=== PATIENT | female | born 1960 | race Caucasian/White ===

== ENCOUNTER 2020-08-25 13:13 | Emergency (ER) | payer OTHER, MEDICARE, MEDICAID, SELFPAY ==
[2020-08-25 13:14] VITALS: BP 121/82; PULSE 89; RESP 16; TEMP 36.3; O2SAT 95; BMI 23.3
--- NOTE | 2020-08-25 13:31 | RAD_ITS ---
STUDY: X-RAY - LEFT ELBOW REASON FOR EXAM: Female, 60 years old. Injury/Pain TECHNIQUE: 3 view(s) of the elbow. COMPARISON: None. FINDINGS: Seen only on the lateral view is a nondisplaced proximal ulnar fracture with associated soft tissue swelling. No demonstrated fracture of the distal humerus or proximal radius. RAD/Elbow min 3 Views IMPRESSION: Nondisplaced proximal ulnar fracture with soft tissue swelling Electronically Signed: Alan Perez MD at 13:57 EDT , Service support ,
--- NOTE | 2020-08-25 13:42 | EX.ED.UPPERE ---
HPI History of Present Illness Chief Complaint: Upper Extremity Injury Narrative Narrative: The patient presents complaining of left elbow pain that occurred last night when she inadvertently fell striking her left elbow she has no other complaints no head neck chest or abdominal pain she has full use motion of the left hand [facility] Medical History (Updated 08/25/20 @ 14:[address] Marlo Ramon MD) Anxiety Closed olecranon fracture COPD (chronic obstructive pulmonary disease) Hypertension Home Medications lisinopril 5 mg PO DAILY 10/29/13 [History Last Taken Unknown] tizanidine [Zanaflex] 4 mg PO QHS 10/29/13 [History Last Taken 08/24/15] trazodone 150 mg PO QHS 10/29/13 [History Last Taken 08/24/15] venlafaxine 150 mg PO QHS 10/29/13 [History Last Taken 08/24/15] tiotropium bromide [Spiriva with HandiHaler] 1 puff INHALATION DAILY 08/25/15 [History Last Taken 08/25/15] albuterol sulfate [Ventolin HFA] 1 - 2 puff INHALATION Q4H PRN PRN #1 inhaler 08/27/15 [Rx Last Taken Unknown] prednisone 40 mg PO DAILY@0800 #10 tablet 12/23/16 [Rx Last Taken Unknown] hydrocodone-acetaminophen 1 tab PO Q4H PRN PRN 3 Days #10 tablet 08/25/20 [Rx Last Taken Unknown] Allergy/AdvReac Type Severity Reaction Status Date / Time aspirin Allergy Anaphylaxis Verified 08/25/20 13:16 Family History (Updated 08/25/20 @ 14:[address] Marlo Ramon MD) Other Closed olecranon fracture Social History Smoking Status: Current every day smoker ROS ROS ED ROS Narrative Only complaint is left elbow injury Constitutional Constitutional ED: Reports subjective, sweats and other; Denies chills, fever(s) or weight loss Eyes Eyes: Denies blurry vision or change in vision ENT ENT ED: Denies ear pain Cardiovascular Cardiovascular: Denies chest pain or palpitations Respiratory/Chest Respiratory/Chest: Denies dyspnea Gastrointestinal Gastrointestinal: Denies abdominal pain, nausea or vomiting Genitourinary Genitourinary ED: Denies dysuria or hematuria Musculoskeletal Musculoskeletal: Reports myalgias; Denies arthralgias Integumentary Reports rash; Denies abscess Neurologic Neurologic: Denies weakness Psychiatric Psychiatric: Denies anxiety or depression Endocrine Endocrinology: Denies polydipsia or polyuria Allergic/Immunologic Allergic/Immunologic ED: Denies urticaria EXAM Physical Exam Narrative Exam Narrative: The patient's general exam is unremarkable see below the left elbow there is contusion to the elbow she is able to flex and extend forearm wrist hand unremarkable hand function normal pulses normal neurovascular function normal shoulder unremarkable Const Vital Signs: 08/25/20 13:14 Temperature 97.3 F L Temperature Source Temporal Pulse Rate 89 Respiratory Rate 16 Blood Pressure 121/82 H Blood Pressure Mean 95 Pulse Ox 95 Oxygen Delivery Method Room Air Positive well developed General Appearance ED: well developed HEENT Reports normocephalic Negative for trauma Eyes EOMs intact bilaterally Neck supple Chest Wall inspection of chest normal Resp normal respiratory effort Cardio regular rate GI non-tender and non-distended Back/Spine Back/Spine Narrative: unremarkable Extremity normal to inspection Neuro oriented x3 and CN's II-XII intact bilaterally Sensorium / Orientation: alert Psych mental status grossly normal Skin no rashes or lesions noted MDM MDM MDM Narrative Medical decision making narrative: Given all the above pain management Multiview x-ray to my review shows what appears to be a nondisplaced olecranon fracture radiology agrees explained this to the patient she is placed in a long elbow splint she is placed off work Worker's Compensation work filled out given referral to orthopedics and the [facility] provider of her choice [employer] for pain and return for change in symptoms Home stable Final impression nondisplaced left olecranon fracture after falling at work Discharge Plan Triage Chief Complaint: Upper Extremity Injury ED Provider: Marlo Ramon Dx/Rx/DC Orders Clinical Impression: Closed olecranon fracture Instructions: ED Elbow Fracture Prescriptions: New hydrocodone-acetaminophen 5-325 mg tablet 1 tab PO Q4H PRN PRN (Reason: Pain) 3 Days Qty: 10 RF: 0 No Action tizanidine [Zanaflex] 4 MG tablet 4 mg PO QHS RF: 0 trazodone 100 MG tablet 150 mg PO QHS RF: 0 venlafaxine 37.5 MG tablet 150 mg PO QHS RF: 0 lisinopril 10 MG tablet 5 mg PO DAILY RF: 0 tiotropium bromide [Spiriva with HandiHaler] 1 PUFF inhaler 1 puff inhalation DAILY RF: 0 albuterol sulfate [Ventolin HFA] 1 INHALER inhaler 1 - 2 puff inhalation Q4H PRN PRN (Reason: Sob &/Or Wheezing) Qty: 1 RF: 0 prednisone 20 MG tablet 40 mg PO DAILY@0800 Qty: 10 RF: 0 Primary Care Provider: Oz Franklin Referrals: Schuyler Garcia DO [STAFF PHYSICIAN] - Oz Franklin MD [Primary Care Provider] -
[2020-08-25] MEDS: Acetaminophen 500 MG Tablet 1000 MG PO (14:25)
== END 2020-08-25 15:38 | disposition home or self-care (01) ==
LOC: ED 14:33
PROVIDERS: Emergency Provider Emergency Medicine; PCP Family Medicine
DX: S52.025A Nondisplaced fracture of olecranon process without intraarticular extension of left ulna, initial encounter for closed fracture (principal); W01.10XA Fall on same level from slipping, tripping and stumbling with subsequent striking against unspecified object, initial encounter; Y93.9 Activity, unspecified; Y92.9 Unspecified place or not applicable; Y99.0 Civilian activity done for income or pay; J44.9 Chronic obstructive pulmonary disease, unspecified; I10 Essential (primary) hypertension; F41.9 Anxiety disorder, unspecified; F17.200 Nicotine dependence, unspecified, uncomplicated; Z79.899 Other long term (current) drug therapy
CPT/HCPCS: 29105; 73080; 99283

== ENCOUNTER 2020-11-25 15:30 | Outpatient (RCR) | payer OTHER, MEDICARE, SELFPAY ==
--- NOTE | 2020-10-19 15:33 | HP.PTEVAL ---
Patient's Visit Information SHUBHAM NOVAK is a 60 year old F referred to Physical Therapy by Dr. Schuyler Garcia DO with a diagnosis of L nondisplaced fx of olecran. Date of Evaluation: 10/19/20 Physical Therapist: DALE Carranza - Visit Plan Frequency: 2-3x /Week Duration: 6 Weeks Plan: 2-3X/ wek for 4-6 weeks for L elbow flex/ext AROM and AAROM, gentle pain free PROM, L wrist strengthening and light L elbow strengthening once pain and swelling have gone down with HEP. HEP: elbow extension over a towel and gripping a ball - Subjective Pt was at work and there was a mat that they removed and there was a puddle of water and she slipped and fell down on her L elbow. It was her first day. She is on light duty at work now. She went home cause it was just achy and tried to sleep and could not. She went to the ER the next morning and it was broken. It was broken and put her in a hard sling and then in a cast and then went to Dr Garcia. They took the cast off a week ago. They say it is healed but she is concerned that it is not cause it is still swollen and bruised. She only had the cast on for 3 weeks. She is R handed. She is still having trouble sleeping cause it is painful. If she moves to quick and she gets a sharp pain. In the morning she is very painful and stiff. By evening she is getting more pain cause she is trying to use it. told her to not use her L arm. She has not tried to telephoto installer cause she will get wrist and elbow pain where the break is. She has L wrist pain when she goes to telephoto installer something. - Pain L elbow pain Pain Intensity (Out of 10): 6 Pain Intensity Range: 9 L wrist pain Pain Intensity (Out of 10): 0 - Objective R telephoto installer strength 51# and L 22#. R elbow flexion 145 degrees and L elbow flex 140 degrees (painful at end range on the L. R elbow extension 0 degrees and L elbow extension -35 degrees from full extension (painful at end range on the L). R wrist flex/ ext 95 degrees and 85 degrees L wrist ext/ flex 35 degrees and 50 degrees. R pincher 6# L pincher 4# with increase pain. Pt has decrease L shoulder flexion AROM and decrease L elbow AROM. 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 Goal Time Frame: 6-8 Weeks Goal 4:: Increase L telephoto installer strength to approx 41# Goal Time Frame: 6-8 Weeks - Rehabilitation Potential Rehabilitation Potential: Good - Anticipated Interventions Patient/Client Instruction: Educate patient on: Condition, Plan of Care For the Purpose of:: To decrease pain, To decrease swelling/inflammation, To increase ROM, To improve nutrient delivery to tissue, To improve muscle performance and motor function, To improve ability to perform ADL's, To increase tolerance to activity/condition/position, To improve performance and independence with ADL's, To improve health of tissue, To decrease soft tissue restriction, To increase flexibility/ROM Therapeutic Exercise to Include: Strength training, Flexibilty training, Passive ROM, Active ROM For the Purpose of:: To decrease pain, To decrease swelling/inflammation, To increase ROM, To improve nutrient delivery to tissue, To improve muscle performance and motor function, To increase tolerance to activity/condition/position, To improve performance and independence with ADL's, To improve ability of physical actions for home/community/work/leisure, To improve gait and locomotor functions, To improve health of tissue, To decrease soft tissue restriction, To increase flexibility/ROM Thank you for the opportunity to evaluate your patient. For Medicare and Medicare HMO plans, please review the plan of care and approve it. It will need to be FAXED BACK to us at [phone] for Medicare purposes. For Medicare only, by signing this I certify the plan of care. Please let me know if there are questions or concerns regarding this plan of care. Physician Signature: Date:
--- NOTE | 2020-11-25 15:50 | HP.PTDCSUM ---
It has been my pleasure to treat SHUBHAM NOVAK referred by Dr. Schuyler Garcia DO, with the diagnosis of L nondisplaced fx of olecran for a total of 11 visit(s). Discharge Date: 11/25/20 Please see the following information for a summary of their discharge status. 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 Her Dr. has already cleared her to go back to work don. If she lifts something heavy she will have some pain. It is more of an ache. Her hurts her arm to reach overhead some but she keeps working with it. Pt feels that it will just take time to heel and continue to stretch it out. L elbow pain Pain Intensity (Out of 10): 0 L wrist pain Pain Intensity (Out of 10): 0 % Improvement: 80 Objective/Function: Garment Sewing Machine Operator strength: R 53#. L 45#. L elbow extension -5degrees from full extension and 145 degrees L elbow flexion. L elbow flex 4/5. 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 Pt returns to work tomm. Discharge Comments: DC PT to HEP If there are questions or concerns regarding this patient's physical therapy, please feel free to call me at [phone]. Thank you for the referral of this patient. Sincerely, Leatha Downing, MPT Balance/Gait/Functional tests - Balance/Special Test Scores Quick DASH Score: 11.362
== END 2020-11-25 19:00 | disposition home or self-care (01) ==
LOC: PT 15:30
PROVIDERS: PCP Family Medicine; Referring Provider Orthopaedic Surgery; Visit Provider Orthopaedic Surgery
DX: S52.025D Nondisplaced fracture of olecranon process without intraarticular extension of left ulna, subsequent encounter for closed fracture with routine healing (principal); S52.035D Nondisplaced fracture of olecranon process with intraarticular extension of left ulna, subsequent encounter for closed fracture with routine healing
CPT/HCPCS: 97110; 97161; 97530

== ENCOUNTER → 2024-07-01 | Outpatient (CLI) | payer MEDICARE, SELFPAY ==
--- NOTE | 2024-07-01 12:01 | US_ITS ---
PROCEDURE: THYROID 07/01/2024 REASON FOR EXAM: 64-year-old female, NONTOXIC SINGLE THYROID NODULE TECHNIQUE: Thyroid ultrasound COMPARISON: None. FINDINGS: Right thyroid lobe measures 5.0 x 2.4 x 1.9 cm. Left thyroid lobe measures 5.3 x 2.1 x 2.0 cm. Isthmus thickness is0.3 cm. Thyroid Size: Normal Background Echotexture: Normal Thyroid Nodules: There are a few small bilateral colloid cysts. No suspicious nodules identified. US/Thyroid IMPRESSION: No suspicious thyroid nodules identified. Dedicated follow-up not indicated by ACR TI-RADS criteria. Reading Location: [id number]
== END | disposition home or self-care (01) ==
LOC: US 12:01
PROVIDERS: PCP Family Medicine; Referring Provider Family Medicine; Visit Provider Family Medicine
DX: E04.1 Nontoxic single thyroid nodule (principal)
CPT/HCPCS: 76536

== ENCOUNTER → 2024-07-08 | Outpatient (CLI) | payer MEDICARE, MEDICAID, SELFPAY | END | disposition home or self-care (01) | PROVIDERS: PCP Family Medicine; Referring Provider Family Medicine; Visit Provider Family Medicine | DX: J44.9 Chronic obstructive pulmonary disease, unspecified (principal) | CPT/HCPCS: 94060 ==